=== PATIENT | female | born 1950 | race Caucasian/White ===

== ENCOUNTER → 2017-05-14 | Outpatient (CLI) | payer OTHER ==
[~2017-05-14] MED LIST: DICLOFENAC SOD50 M1 PO; FLEXERIL PO
== END ==
LOC: ULTRA 12:59
DX: N64.4 Mastodynia (principal)

== ENCOUNTER 2018-08-16 15:01 | Emergency (ER) | payer OTHER ==
[~2018-08-16] VITALS: Ht 157.5 cm; Wt 53.5 kg
[2018-08-16 15:02] VITALS: BP 174/153
[2018-08-16] MEDS ORDERED: SYNTHROID75 MCG PO (15:22)
== END 2018-08-16 16:00 | disposition home or self-care (01) ==
LOC: ER 15:01
DX: L20.9 Atopic dermatitis, unspecified (principal); M19.90 Unspecified osteoarthritis, unspecified site; Z91.09 Other allergy status, other than to drugs and biological substances

== ENCOUNTER 2020-07-19 10:39 | Emergency (ER) | payer OTHER ==
[~2020-07-19] VITALS: Ht 157.5 cm; Wt 54.4 kg
[~2020-07-19 10:39] MED LIST changes: +SYNTHROID75 MCG PO
[2020-07-19] MEDS ORDERED: CYCLOBENZAPRINE10 MG PO (10:44)
[2020-07-19] MEDS ORDERED: LOSARTAN POTASS50 MG PO (10:44)
[2020-07-19] MEDS ORDERED: IBUPROFEN 800800 M1 PO (10:44)
[2020-07-19 12:02] LABS: ABSOLUTE NEUTROPHILS 3.9 thou/uL (1.4-8.2); BASOPHILS 1.3 % (0.0-2.0); EOSINOPHILS 1.5 % (0.0-3.0); HEMATOCRIT 35.2 % (37.0-47.0); HEMOGLOBIN 11.3 gm/dL (12.0-15.0); LYMPHOCYTES 18.7 % (24.0-44.0); MCH 28.2 pg (26.0-34.0); MCV 88.2 fL (80.0-100.0); MONOCYTES 5.8 % (1.0-8.0); PLATELET COUNT 313 thou/uL (150-400); POLYS 72.7 % (36.0-66.0); RBC 3.99 mil/uL (4.20-5.00); RDW 13.6 % (10.5-14.5); WBC 5.3 thou/uL (4.0-11.0)
[2020-07-19 12:18] LABS: CALCIUM 8.8 mg/dL (8.5-10.1); POTASSIUM 4.1 mmol/L (3.5-5.1)
[2020-07-19 12:24] LABS: ALBUMIN 3.7 g/dL (3.4-5.0); TOTAL BILIRUBIN 0.3 mg/dL (0.2-1.0); TOTAL PROTEIN 7.2 g/dL (6.4-8.2)
[2020-07-19] MEDS ORDERED: HYDROXYZINE PAM25 M1 PO (12:58)
[2020-07-19] MEDS ORDERED: MEDROLDOSEPACK PO (12:58)
[2020-07-19 13:03] VITALS: BP 179/81
== END 2020-07-19 13:03 | disposition home or self-care (01) ==
LOC: ER 10:39
PROVIDERS: Emergency Medicine
DX: R60.0 Localized edema (principal); Z79.899 Other long term (current) drug therapy; Z88.8 Allergy status to other drugs, medicaments and biological substances